=== PATIENT | female | born 1995 | race Hispanic/Latino ===

== ENCOUNTER 2022-07-14 21:19 | Emergency (ER) | payer BC ==
[~2022-07-14] VITALS: Ht 162.6 cm; Wt 99.3 kg
[2022-07-14] MEDS ORDERED: ONDANSETRON ODT4 MG PO (21:24)
[2022-07-14] MEDS ORDERED: MUCINEX DM ER1 EACH PO (21:24)
== END 2022-07-14 22:04 | disposition home or self-care (01) ==
LOC: ER 21:23
DX: R06.00 Dyspnea, unspecified (principal); U07.1 COVID-19
CPT/HCPCS: 99282